=== PATIENT | female | born 1930 | race Caucasian/White ===

== ENCOUNTER 2018-12-29 09:19 | Day surgery (SDC) | payer OTHER ==
[~2018-12-29] VITALS: Ht 157.5 cm; Wt 35.4 kg
[~2018-12-29 09:19] MED LIST: BREO ELLIPTA 21 EACH IH; HYDROmorphone 2 MG/ML VIAL IV PRN; IV RINGERS,LACTATED 1000ML 1,000 ML IV SCH; LIDOCAINE 1% PF 2 ML VIAL. ID PRN; MEMA10TA20 PO; MORPHINE SULFATE 4 MG/ML VIAL. IV PRN; ONDANSETRON PF 4 MG/2 ML VIAL. IV PRN; PROCHLORPERAZINE 10 MG/2 ML VIAL. IV PRN; TRAZ150T49 PO; [UNRECOGNIZED DRUG - OTHER] NEB; fentaNYL PF VIAL 100 MCG/2 ML VIAL IV PRN
[2018-12-29] MEDS ORDERED: LIDOCAINE 1%/EPI 1:100,000 20 ML VIAL. ONE (11:56)
[2018-12-29] MEDS ORDERED: PROPOFOL 20 ML IV ONE (11:58)
[2018-12-29] MEDS ORDERED: fentaNYL PF VIAL 100 MCG/2 ML VIAL ONE (11:58)
[2018-12-29] MEDS ORDERED: LIDOCAINE 2% PF Vial for OR 5 ML VIAL. ONE (12:01)
[2018-12-29] MEDS ORDERED: LIDOCAINE 1%/EPI 1:100,000 20 ML VIAL. INJ ONE (12:50)
--- NOTE | 2018-12-29 13:16 | PDOC4 ---
Operative Note Operative Note Operative Note: Preoperative Diagnosis: Left axillary lymphadenopathy Postoperative Diagnosis: Same Procedure: Left axillary lymph node biopsy Surgeon: Jonny Anesthesia: Local MAC EBL: 20 mL Specimen: Left axillary lymph node to pathology Drains: None Complications: None Indication: The patient is an 68 year old female who is referred due to marked axillary lymphadenopathy worse in the left side. She is to undergo an excisional biopsy of left axillary lymph node. The risks of surgery were discussed which include bleeding, infection, seroma, pain, anesthetic risk, potential need for additional surgery or procedure. She understands and would like to proceed. Description: The patient was taken to the operating room and placed supine on the operating table. Monitored anesthesia care was provided. The skin overlying the left axillary lymph node was infiltrated with 1% lidocaine with epinephrine. An elliptical incision was made overlying the lymph node which included a portion of the skin. A combination of sharp and cautery dissection was used to mobilize the markedly enlarged lymph node. A couple of small blood vessels feeding the lymph node were ligated with 2-0 Vicryl and divided. The lymph node was then fully mobilized from the surrounding tissues with cautery and measured 4 x 4 centimeters. The lymph node was sent to pathology for evaluation. Hemostasis was readily achieved with cautery and no other abnormalities were noted. The skin was approximated with 4-0 Monocryl and a sterile dressing was applied. The patient tolerated the procedure well and was sent to the recovery room in stable condition. At the end of the case all counts were correct. EMILY LANE MD Dec 29, 2018 13:16
--- NOTE | 2018-12-29 13:18 | DISCH ---
DISCHARGE INSTRUCTIONS Condition on Discharge Condition on Discharge: Unstable Activity After Discharge Activity Instructions for Disc: Activity as tolerated Diet after Discharge Diet after Discharge: Regular Wound Incision Care Wound/Incision Care: Other, see below (keep dressing clean and dry X 72 hours, may then remove and shower) Follow-Up Follow up with: Dr Lane in 1 week in office, call for appt [phone] MD Dec 29, 2018 13:18
[2018-12-29 14:18] VITALS: BP 134/83
--- NOTE | 2018-12-31 17:10 | PATHOLOGY ---
[facility] Accession Number: [id number] . 01 Material submitted: . LEFT AXILLARY LYMPH NODE - FS . 01 Clinical history: . Axillary adenopathy . 02 Diagnosis: Lymph node with attached fibroadipose tissue and segment of skin, left axillary lymph node excisional biopsy: - METASTATIC POORLY DIFFERENTIATED ADENOCARCINOMA. SEE COMMENT. LBQ/12/30/2018 . 02 Comment: Sections of the left axillary lymph node biopsy show near complete lila replacement by a malignant epithelial neoplasm. The tumor cells are present in solid nests and focally have a pseudopapillary appearance. The tumor cells are large and have ample amounts of eosinophilic cytoplasm, and possess enlarged rounded to ovoid nuclei containing one or more small nucleoli. There are scattered tumor cells which appear to possess intracytoplasmic lumina. Some of the tumor cell nests show central necrosis. The tumor cells show marked nuclear pleomorphism with scattered multinucleated tumor giant cells noted. There are typical and atypical mitotic figures. A panel of immunoperoxidase stains is obtained on block A2 and yields the following results: . Cytokeratin 7: Tumor cells positive. Cytokeratin 20: Tumor cells negative. Villin: Tumor cells negative. CDX-2: Tumor cells negative. TTF-1: Tumor cells negative. P40: Tumor cells negative. S100: Tumor cells negative. . The morphologic and immunophenotypic findings are supportive of the diagnosis of a metastatic poorly differentiated adenocarcinoma. Possible primary sites would include breast and lung. Other possible primary sites would include genitourinary tract, upper gastrointestinal tract, and pancreaticobiliary tract. The case is also examined by Dr. Hinojosa, who concurs with the diagnosis. . (JPM/db/alvin; 12/31/2018) . . Special stains performed: CK7, CK20, villin, CDX-2, TTF-1, p40, and S100 all performed on block A2. . 02 Electronically signed: . Sourav Carnes MD, Pathologist NPI- [id number] . 01 Gross description: . The specimen is received fresh and is designated "left axillary lymph node". This consists of an ovoid segment of yellow-red fatty tissue measuring up to 3.7 x 3.1 x 2.5 cm in greatest dimension. Attached along one surface of the specimen is an ellipse of bonilla skin measuring up to 2.7 x 1.6 cm. Sectioning reveals a well-circumscribed bonilla nodule consistent with an enlarged lymph node, this measures up to 3.1 cm in greatest dimension. It has a bonilla, finely granular cut surface. There are focal yellowish punctate areas of the cut surface. The nodule is surrounded by a thin rim of yellow-red focally cauterized fatty tissue. Two touch preparations are prepared and submitted for H and E staining. A b2b outside sales representative portion is submitted for frozen section as FSA1. The tissue remaining from the frozen section is submitted for permanent sections as A1. Additional sections are submitted for microscopy as A2 - A5. (JPM:[facility] 12/29/2018) . . INTRAOPERATIVE CONSULTATION WITH FROZEN SECTION: Left axillary lymph node biopsy: - METASTATIC CARCINOMA. . The results are reported to Dr. Fuller. (M:[facility] 12/29/2018) . . Frozen section performed at [facility], [address] [place] [id number]. /QTP . 02 Pathologist provided ICD-10: C77.3 . 02 CPT . 119849, 148011, S94603, [id number] Specimen Comment: A courtesy copy of this report has been sent to Specimen Comment: [phone], . Specimen Comment: Report sent to / DR ACEVES Specimen Comment: A duplicate report has been generated due to demographic updates. Performed at: 01 [facility] [address], [place], [place] [id number] MD Forrest Poe MD Phone: [phone] Performed at: [address] [id number] MD Sourav Carnes MD Phone: [phone]
== END 2018-12-29 14:18 | disposition home or self-care (01) ==
LOC: SURG 09:19
PROVIDERS: ATTEND Surgery
DX: C77.3 Secondary and unspecified malignant neoplasm of axilla and upper limb lymph nodes (principal); C80.1 Malignant (primary) neoplasm, unspecified; J44.9 Chronic obstructive pulmonary disease, unspecified; I10 Essential (primary) hypertension; F41.9 Anxiety disorder, unspecified; M81.0 Age-related osteoporosis without current pathological fracture; Z98.51 Tubal ligation status; Z87.891 Personal history of nicotine dependence
CPT/HCPCS: 38525; J0690; J2001; J2704; J3010; J3490; J7120; 88305; 88331; 88341; 88342